=== PATIENT | female | born 1960 | race Caucasian/White ===

== ENCOUNTER 2017-12-21 23:43 | Emergency (ER) | payer SELFPAY ==
--- NOTE | 2017-12-22 01:58 | ED ---
Lower Extremity - HPI Summary HPI Summary: 57-year-old female presents with edema of right foot. States she flew from [place] on Saturday. She denies any history of blood clots. No family history of blood clots. nonsmoker. No recent surgeries. She denies any injury. She states the pain hurts worse when she tries to plantar or dorsiflex or ambulate. She hasn't taking anything for her symptoms. She was not wearing compression socks. minimal pain at this time. no chest pain or SOB. - History of Current Complaint Chief Complaint: EDExtremityLower Stated Complaint: RIGHT FOOT SWELLING Time Seen by Provider: 12/22/17 00:43 Pain Intensity: 3 - Allergies/Home Medications Allergies/Adverse Reactions: Allergies Allergy/AdvReac Type Severity Reaction Status Date / Time No Known Allergies Allergy Verified 12/21/17 23:46 Home Medications: Home Medications NK [No Home Medications Reported] 12/22/17 [History Confirmed 12/22/17] PMH/Surg Hx/FS Hx/Imm Hx Endocrine/Hematology History: Denies: Hx Anticoagulant Therapy Cardiovascular History: Denies: Hx Myocardial Infarction - Immunization History Date of Influenza Vaccine: 2016 Infectious Disease History: No Infectious Disease History: Reports: Traveled Outside the [place] in Last 30 Days - Family History Known Family History: Negative: Blood Disorder - Social History Alcohol Use: Weekly Substance Use Type: Reports: None Smoking Status (MU): Never Smoked Tobacco Review of Systems Negative: Fever Negative: Chest Pain Negative: Shortness Of Breath Positive: Edema All Other Systems Reviewed And Are Negative: Yes Physical Exam Triage Information Reviewed: Yes Vital Signs On Initial Exam: Initial Vitals Temp Pulse Resp BP Pulse Ox 97.3 F 89 20 124/87 97 12/21/17 23:45 12/21/17 23:45 12/21/17 23:45 12/21/17 23:45 12/21/17 23:45 Vital Signs Reviewed: Yes Appearance: Positive: Well-Appearing Skin: Positive: Warm, Dry Head/Face: Positive: Normal Head/Face Inspection Eyes: Positive: Normal, Conjunctiva Clear Respiratory/Lung Sounds: Positive: Clear to Auscultation, Breath Sounds Present Cardiovascular: Positive: Normal, RRR Musculoskeletal: Positive: Strength/ROM Intact - right leg, Hattie Sign Right, Edema Right - foot, Other - good pulses, capillary refill<2 secs, Neurological: Positive: Normal Psychiatric: Positive: Normal Diagnostics - Vital Signs Vital Signs Temp Pulse Resp BP Pulse Ox 12/21/17 23:45 97.3 F 89 20 124/87 97 - Laboratory Lab Statement: Any lab studies that have been ordered have been reviewed, and results considered in the medical decision making process. - Ultrasound No standard instances Ultrasound Interpretation: No Acute Changes Ultrasound Interpretation Completed By: Radiologist Lower Extremity Course/Dx - Course Course Of Treatment: 57-year-old female presents with edema of right foot. States she flew from [place] on Saturday. She denies any history of blood clots. No family history of blood clots. nonsmoker. No recent surgeries. She denies any injury. She states the pain hurts worse when she tries to plantar or dorsiflex or ambulate. She hasn't taking anything for her symptoms. She was not wearing compression socks. minimal pain at this time. no chest pain or SOB. on exam has edema present right foot. neurovascular intact. u/s normal. will treat with compresion socks. patient states that insurance is requesting that is allowed to fly. patient understand and agrees with plan. - Diagnoses Differential Diagnosis/HQI/PQRI: Positive: DVT, Sprain, Strain Provider Diagnoses: Leg edema, right Discharge - Sign-Out/Discharge Documenting (check all that apply): Discharge/Admit/Transfer - Discharge Plan Condition: Good Disposition: HOME Patient Education Materials: Leg Edema (ED) Forms: *Gen. Provider Communication Referrals: No Primary Care Phys,NOPCP [Primary Care Provider] - Additional Instructions: use compression socks elevate, ice Take tyenlol as needed for pain Follow up with primary Return to ED if develop any new or worsening symptoms - Billing Disposition and Condition Condition: GOOD Disposition: Home
[2017-12-22 02:23] VITALS: BP 118/92
--- NOTE | 2017-12-22 09:01 | RAD ---
HISTORY: Right leg swelling TECHNIQUE: Multiple transverse and longitudinal ultrasound images were obtained of the veins of the right lower extremity using grayscale, color Doppler, and spectral Doppler imaging with and without compression and with augmentation. FINDINGS: Image quality is limited by the patient's large body habitus. VEINS: The common femoral vein, deep femoral vein, femoral vein and popliteal vein are compressible throughout their course, with normal flow on color Doppler imaging and normal response to augmentation on spectral Doppler imaging. SOFT TISSUES: Grossly normal. No large popliteal fossa cyst was identified. IMPRESSION: No sonographic evidence of deep vein thrombosis.
== END 2017-12-22 02:23 | disposition home or self-care (01) ==
LOC: ED 23:43
DX: R60.0 Localized edema (principal)
CPT/HCPCS: 99282